=== PATIENT | female | born 1990 | race Caucasian/White ===

== ENCOUNTER 2018-11-30 07:32 | Inpatient (IN) | payer OTHER ==
[~2018-11-30] VITALS: Ht 167.6 cm; Wt 73.8 kg
[2018-11-30 07:49] VITALS: Ht 167.6 cm; Wt 73.8 kg
[2018-11-30 07:50] VITALS: BP 121/78; PULSE 78; RESP 18
[2018-11-30] MEDS ORDERED: PNV11TAB PO (07:51)
[2018-11-30] MEDS ORDERED: LACTATED RINGER'S 1,000 ML IV SCH (07:52)
[2018-11-30] MEDS ORDERED: CARBOPROST 250 MCG INJ IM PRN ×2 (08:00→14:00)
[2018-11-30] MEDS ORDERED: METHYLERGONOVINE 0.2 MG INJ IM PRN (08:00)
[2018-11-30] MEDS ORDERED: BUTORPHANOL 2 MG INJ IV PRN (08:00)
[2018-11-30] MEDS ORDERED: OXYTOCIN 30 UNITS/LR 500 ML IV PRN ×2 (08:00→14:00)
[2018-11-30] MEDS ORDERED: LIDOCAINE 1% (MPF) 30 ML INJ INJ PRN (08:00)
[2018-11-30] MEDS ORDERED: OXYTOCIN 30 UNITS/LR 500 ML IV SCH ×2 (08:00)
[2018-11-30] MEDS ORDERED: MISOPROSTOL 200 MCG TAB PR PRN ×2 (08:00→14:00)
[2018-11-30] MEDS ORDERED: BUTORPHANOL 1 MG INJ IV PRN (08:00)
[2018-11-30] MEDS ORDERED: AMPICILLIN 2 GM/NS (PMX) 100 ML IV ONE (08:00)
[2018-11-30] MEDS ORDERED: AMPICILLIN 1 GM/NS (PMX) 50 ML IV SCH (12:00)
[2018-11-30] MEDS ORDERED: LACTATED RINGER'S 1,000 ML IV* SCH (13:48)
--- NOTE | 2018-11-30 13:51 | HP ---
Date/Time of Note Date/Time of Note DATE: 11/30/18 TIME: 13:50 OB - History Hx of Present Free Text/Dictation 28 YO with EDC 12/04/2018 with IUP at 39.3 weeks who reported to L&D in active labor with 7 cm dilation. Care: Good Care Ultrasounds: Normal mid trimester US Obstetrical Complications: None Medical Complications: None Past Family/Social History * Past Medical, Surgical, Family and Obstetric Histories reviewed from chart. OB Admission Exam Vital Signs Vital Signs Vital Signs Date Temp Pulse Resp B/P (MAP) Pulse Ox O2 O2 Flow FiO2 Time Delivery Rate 11/30/18 97.9 78 18 121/78 07:50 (92) Physical Exam HEENT: WNL Heart: Rhythm Normal Lungs: Clear, Equal Abdomen: WNL Extremities: Normal Reflexes: Normal Cervical Dilatation: 10cm Last 72 hours Lab Results CBC & BMP 11/30/18 08:30 OB Assessment/Plan Reason for admission: active labor Plan: Expectant Management VAL TOVAR MD Nov 30, 2018 13:51
--- NOTE | 2018-11-30 13:58 | LDN ---
Date/Time of Note Date/Time of Note DATE: 11/30/18 TIME: 13:51 Delivery Summary 28 YO with IUP at 39.3 weeks with EDC 12/04/2018. s/p of viable male . placenta delivered intact and spontaneously. EBL 300 ml. no laceration. Placenta Delivered: Spontaneously Episiotomy: No Perineal laceration: 0 Laceration repair: NA Anesthesia type: None Estimated blood loss: 300 Sponge & Needle done & correct: Yes All needle counts correct: Yes Any foreign bodies felt in the: No Delivery Information Sex Sex: male Apgars 1 Minute: 9 5 Minute: 9 Suctioning Nose & mouth suctioned at fabienne: No Delee suction performed: No Umbilical Cord Umbilical cord with: 3 Vessels Cord presentations: nuchal cord Nuchal cord present X: 1 Cord Blood was obtained: Yes Mother & Baby Disposition Disposition Mom & Baby to Maternity; Good: Yes VAL TOVAR MD Nov 30, 2018 13:57
[2018-11-30] MEDS ORDERED: NA PHOSPHATE/BIPHOS 133 ML ENEMA PR PRN (14:00)
[2018-11-30] MEDS ORDERED: ONDANSETRON 4 MG TAB PO PRN (14:00)
[2018-11-30] MEDS ORDERED: ONDANSETRON 4 MG INJ IV PRN (14:00)
[2018-11-30] MEDS ORDERED: DIPHENHYDRAMINE 25 MG CAP PO PRN (14:00)
[2018-11-30] MEDS ORDERED: DIBUCAINE 1% 30 GM OINT TOP PRN (14:00)
[2018-11-30] MEDS ORDERED: BENZOCAINE 20% 56 ML SPRAY TOP PRN (14:00)
[2018-11-30] MEDS ORDERED: SENNA/DOCUSATE NA (8.6MG/50MG) TAB PO PRN (14:00)
[2018-11-30] MEDS ORDERED: MAGNESIUM HYDROXIDE 30ML CUP PO PRN (14:00)
[2018-11-30] MEDS ORDERED: HYDROCODONE/APAP (5/325) TAB PO PRN ×2 (14:00)
[2018-11-30] MEDS ORDERED: WITCH HAZEL/GLYCERIN PAD PR PRN (14:00)
[2018-11-30] MEDS ORDERED: DIPHENHYDRAMINE 50 MG INJ IV PRN (14:00)
[2018-11-30] MEDS ORDERED: LANOLIN HPA 1 PKT TOP PRN (14:00)
[2018-11-30 15:30] VITALS: BP 110/63; PULSE 73; RESP 18
[2018-11-30 16:00] VITALS: BP 101/68; PULSE 82; RESP 18
[2018-11-30] MEDS: IBUPROFEN 600 MG TAB PO SCH ×2 (17:38→23:42)
[2018-11-30 20:15] VITALS: BP 111/62; PULSE 79; RESP 18
[2018-11-30] MEDS: SENNA/DOCUSATE NA (8.6MG/50MG) TAB PO SCH (23:42)
[2018-12-01 04:00] VITALS: BP 120/71; PULSE 80; RESP 19
[2018-12-01] MEDS: IBUPROFEN 600 MG TAB PO SCH ×3 (06:00→18:00)
[2018-12-01 08:30] VITALS: BP 103/63; PULSE 82; RESP 18
[2018-12-01] MEDS: SENNA/DOCUSATE NA (8.6MG/50MG) TAB PO SCH ×2 (08:54→21:00)
[2018-12-01 14:56] VITALS: BP 106/56; PULSE 81; RESP 18
--- NOTE | 2018-12-01 15:33 | QN ---
Documentation Comment no B.M yet no complaints vss afebrile fundus firm non tender lochia reduced calf neg for tenderness 13.6.> 10.5 < 192 30.5 A stable s/p #1 P discharge home in am LEV HANSEN MD Dec 01, 2018 15:33
[2018-12-01 20:30] VITALS: BP 103/56; PULSE 80; RESP 19
[2018-12-02 03:45] VITALS: BP 99/58; PULSE 72; RESP 19
[2018-12-02] MEDS: IBUPROFEN 600 MG TAB PO SCH ×3 (06:18→12:41)
[2018-12-02 08:00] VITALS: BP 109/61; PULSE 71; RESP 20
[2018-12-02] MEDS ORDERED: VARICELLA VACCINE LIVE/PF 1,350 UNIT/0.5 ML ML SC* ONE (09:00)
[2018-12-02] MEDS ORDERED: MEASLES,MUMPS,RUBELLA VACCINE INJ SC* ONE (09:00)
[2018-12-02] MEDS ORDERED: DIPHTH/TET/ACEL PERTUSS (ADULT) 0.5 ML VIAL IM* ONE (09:00)
[2018-12-02] MEDS: SENNA/DOCUSATE NA (8.6MG/50MG) TAB PO SCH (10:56)
--- NOTE | 2018-12-02 13:01 | DS ---
Date/Time of Note Date/Time of Note DATE: 12/02/18 TIME: 13:01 Obstetrical Discharge Record Final Diagnosis Final Diagnosis: Term delivered Vaginal Delivery Obstetrical Delivery: Spontaneous Complications Augmentation: Yes Induction: Yes Rupture of Membranes: No Condition on Discharge Physical Assessment Voiding: Yes Bowel Movement: Yes Breast: Soft, non-tender, Filling Fundus: Firm Abdomen and Incision: soft, not tender Calf Tenderness: No Patient Condition: Good VAL TOVAR MD Dec 02, 2018 13:01
== END 2018-12-02 15:05 | disposition home or self-care (01) | DRG 807 ==
LOC: L-D 07:32 → OBT 07:32 → L-D 07:55 → OBT 08:01 → L-D 10:44 → PP1 15:31
PROVIDERS: ADMIT Specialist; ATTEND Specialist
PROC: 10E0XZZ Delivery of Products of Conception, External Approach (ICD-10-PCS; principal; 2018-11-30)
DX: O69.81X0 Labor and delivery complicated by cord around neck, without compression, not applicable or unspecified (principal); Z37.0 Single live birth; Z3A.39 39 weeks gestation of pregnancy
CPT/HCPCS: 85025; 85610; 85730; 86592; 86850; 86900; 86901; 87340; 90716; G0463; J0290; J7120